=== PATIENT | male | born 1965 | race Caucasian/White ===

== ENCOUNTER 2021-06-26 08:05 | Emergency (ER) | payer OTHER ==
[2021-06-26 08:24] VITALS: BP 125/76; PULSE 68; TEMP 98.6; BMI 33.5
[2021-06-26] MEDS ORDERED: KETOROLAC TROMETHAMINE 30 MG/1 ML VIAL IM ONE (08:26)
[2021-06-26] MEDS ORDERED: KETOROLAC TROMETHAMINE 30 MG/1 ML VIAL ONE (08:50)
== END 2021-06-26 09:51 | disposition home or self-care (01) ==
LOC: FER 08:05
PROC: 3E023GC Introduction of Other Therapeutic Substance into Muscle, Percutaneous Approach (ICD-10-PCS; principal; 2021-06-26)
DX: M54.2 Cervicalgia (principal); M54.6 Pain in thoracic spine
CPT/HCPCS: 72070-TC-FY; 99284-25

== ENCOUNTER 2022-04-14 08:33 | Inpatient (IN) | payer OTHER ==
[2022-04-14 08:46] VITALS: BMI 33.0
[2022-04-14] MEDS ORDERED: SODIUM CHLORIDE 1,000 ML IV STA ×2 (09:17→10:30)
[2022-04-14 09:21] LABS: HEMATOCRIT 43.9 % (35.4-49); HEMOGLOBIN 15.6 G/dL (11.7-16.9); MCHC 35.5 g/dl (32.0-35.9); MEAN PLT VOLUME 10.1 fl (7.5-11.1); PLATELET COUNT 210.4 10^3/uL (134-434); RBC 4.88 10^6/uL (4.00-5.60); RDW 13.7 % (11.9-15.9); WHITE BLOOD COUNT 22.4 10^3/uL (4.0-10.8)
[2022-04-14] MEDS ORDERED: ACETAMINOPHEN 1000 MG/100 ML BAG IVPB ONE (09:25)
[2022-04-14 09:28] LABS: ALBUMIN 3.6 g/dl (3.4-5.0); BILIRUBIN,TOTAL 0.8 mg/dl (0.2-1); CALCIUM 9.1 mg/dl (8.5-10); CREATININE 1.1 mg/dl (0.55-1.3); TOT PROT 6.9 g/dl (6.4-8.2)
[2022-04-14] MEDS ORDERED: ACETAMINOPHEN INJECTION 100 ML IVPB ONE (09:31)
[2022-04-14 10:01] LABS: EPITHELIAL CELLS FEW /hpf; URINE MUCUS 2+
[2022-04-14] MEDS ORDERED: CEFTRIAXONE 1,000 MG in DEXTROSE 5%-WATER - 50 ML IVPB ONE (13:16)
[2022-04-14] MEDS ORDERED: cefTRIAXone SODIUM 1 GM VIAL ONE (13:26)
[2022-04-14 15:16] LABS: INR 1.46 (0.83-1.09); PROTHROMBIN TIME (PATIENT) 16.8 SEC (9.7-13.0)
[2022-04-14] MEDS ORDERED: ACETAMINOPHEN 1000 MG/100 ML BAG IVPB PRN (16:01)
[2022-04-14] MEDS: LACTATED RINGERS SOLUTION 1,000 ML IV SCH (18:03)
[2022-04-15 08:06] LABS: INR 1.38 (0.83-1.09); PROTHROMBIN TIME (PATIENT) 15.9 SEC (9.7-13.0)
[2022-04-15 08:48] LABS: ALBUMIN 3.1 g/dl (3.4-5.0); BILIRUBIN,TOTAL 0.7 mg/dl (0.2-1); CREATININE 0.9 mg/dl (0.55-1.3); MAGNESIUM 2.1 mg/dL (1.8-2.4); PHOSPHOROUS 3.2 mg/dl (2.5-4.9); TOT PROT 6.3 g/dl (6.4-8.2)
[2022-04-15] MEDS: CEFTRIAXONE 1 GM in DEXTROSE 5%-WATER - 50 ML IVPB SCH (09:46)
[2022-04-15] MEDS: PANTOPRAZOLE SODIUM 40 MG VIAL IVPUSH SCH (09:46)
[2022-04-15 13:49] LABS: CALCIUM 8.8 mg/dl (8.5-10)
[2022-04-15 13:50] LABS: HEMATOCRIT 42.3 % (35.4-49); HEMOGLOBIN 14.8 G/dL (11.7-16.9); MEAN CELL VOLUME 91.3 fl (80-96); PLATELET COUNT 177.9 10^3/uL (134-434); RBC 4.63 10^6/uL (4.00-5.60); RDW 14.2 % (11.9-15.9); WHITE BLOOD COUNT 17.1 10^3/uL (4.0-10.8)
[2022-04-15 14:45] LABS: PLATELET ESTIMATE ADEQUATE
[2022-04-15] MEDS: LACTATED RINGERS SOLUTION 1,000 ML IV SCH (17:04)
[2022-04-15] MEDS: TAMSULOSIN HCL 0.4 MG CAP PO SCH (21:22)
[2022-04-16] MEDS: CEFTRIAXONE 1 GM in DEXTROSE 5%-WATER - 50 ML IVPB SCH (09:33)
[2022-04-16] MEDS: PANTOPRAZOLE SODIUM 40 MG VIAL IVPUSH SCH (09:33)
[2022-04-16] MEDS: TAMSULOSIN HCL 0.4 MG CAP PO SCH (21:12)
[2022-04-17 08:01] LABS: ALBUMIN 3.1 g/dl (3.4-5.0); BILIRUBIN,TOTAL 0.6 mg/dl (0.2-1); CALCIUM 9.2 mg/dl (8.5-10); CREATININE 0.9 mg/dl (0.55-1.3); TOT PROT 6.3 g/dl (6.4-8.2)
[2022-04-17 09:16] LABS: BASO % 0.2 % (0-2.0); EOS % 0.6 % (0-4.5); LYMPH % 14.8 % (8-40); MCH 31.5 pg (25.7-33.7); MCHC 34.9 g/dl (32.0-35.9); MEAN CELL VOLUME 90.2 fl (80-96); MEAN PLT VOLUME 9.9 fl (7.5-11.1); MONO % 9.4 % (3.8-10.2); PLATELET COUNT 255 10^3/uL (134-434); RBC 4.77 M/mm3 (4.00-5.60); RDW 13.7 % (11.9-15.9); WHITE BLOOD COUNT 9.7 K/mm3 (4.0-10.0)
[2022-04-17] MEDS: LACTATED RINGERS SOLUTION 1,000 ML IV SCH ×2 (09:49→17:54)
[2022-04-17] MEDS: PANTOPRAZOLE SODIUM 40 MG VIAL IVPUSH SCH (09:51)
[2022-04-17] MEDS: CEFTRIAXONE 1 GM in DEXTROSE 5%-WATER - 50 ML IVPB SCH (09:51)
[2022-04-17] MEDS: TAMSULOSIN HCL 0.4 MG CAP PO SCH (21:07)
[2022-04-18 01:54] VITALS: RESP 18
[2022-04-18] MEDS: CEFTRIAXONE 1 GM in DEXTROSE 5%-WATER - 50 ML IVPB SCH (09:45)
[2022-04-18] MEDS: PANTOPRAZOLE SODIUM 40 MG VIAL IVPUSH SCH (09:45)
[2022-04-18 11:34] VITALS: BP 128/69; PULSE 71; TEMP 98.6
== END 2022-04-18 12:12 | disposition home or self-care (01) | DRG 392 ==
LOC: FER 08:33 → FM/S 13:26
PROVIDERS: ADMIT Internal Medicine
DX: K57.92 Diverticulitis of intestine, part unspecified, without perforation or abscess without bleeding (principal); N40.0 Benign prostatic hyperplasia without lower urinary tract symptoms; E66.9 Obesity, unspecified; Z68.33 Body mass index [BMI] 33.0-33.9, adult
CPT/HCPCS: 36415; 74177-TC; 80048; 80053; 81003; 81015; 83735; 84100; 85025; 85027; 85610; 86850; 86900; 86901; 99285-25; C9803-CS; Q9967; U0003; U0005

== ENCOUNTER 2022-06-06 12:23 | Inpatient (IN) | payer OTHER ==
[~2022-06-06 12:23] MED LIST: PIPERACILLIN/TAZOB 4.5 GM 4.5 GM in DEXTROSE 5%-WATER 100 ML IVPB ONE
[2022-06-06] MEDS ORDERED: ACETAMINOPHEN 1000 MG/100 ML BAG IVPB ONE (15:20)
[2022-06-06] MEDS ORDERED: SODIUM CHLORIDE 0.9% 500 ML INFUS.BAG IV ONE (15:20)
[2022-06-06] MEDS ORDERED: ACETAMINOPHEN INJECTION 100 ML IVPB ONE ×2 (15:41→22:45)
[2022-06-06 16:46] LABS: BASO % 0.4 % (0-2.0); EOS % 0.7 % (0-4.5); HEMATOCRIT 43.4 % (35.4-49); HEMOGLOBIN 14.5 GM/dL (11.7-16.9); LYMPH % 20.6 % (8-40); MCHC 33.4 g/dl (32.0-35.9); MEAN CELL VOLUME 89.6 fl (80-96); MEAN PLT VOLUME 10.6 fl (7.5-11.1); MONO % 9.4 % (3.8-10.2); NEUT % 68.9 % (42.8-82.8); PLATELET COUNT 237 10^3/uL (134-434); RBC 4.84 M/mm3 (4.00-5.60); RDW 14.5 % (11.9-15.9); WHITE BLOOD COUNT 9.7 K/mm3 (4.0-10.0)
[2022-06-06 17:08] LABS: ALBUMIN 3.8 g/dl (3.4-5.0); BLOOD UREA NITROGEN 11.4 mg/dL (7-18); CALCIUM 9.9 mg/dL (8.5-10.1)
[2022-06-06 17:13] LABS: BILIRUBIN,TOTAL 0.4 mg/dL (0.2-1); TOT PROT 7.4 g/dl (6.4-8.2)
[2022-06-06 17:23] LABS: PH,URINE 5.5 (5.0-8.0); URINE APPEARANCE CLEAR; URINE BILIRUBIN NEGATIVE (NEGATIVE); URINE COLOR YELLOW; URINE GLUCOSE (UA) NEGATIVE (NEGATIVE); URINE KETONE TRACE (NEGATIVE); URINE LEUK ESTERASE NEGATIVE (NEGATIVE); URINE NITRITE NEGATIVE (NEGATIVE); URINE PROTEIN NEGATIVE (NEGATIVE); URINE UROBILINOGEN 0.2 mg/dL (0.2-1.0)
[2022-06-06] MEDS ORDERED: PIPERACILLIN/TAZOB 4.5 GM 4.5 GM in DEXTROSE 5%-WATER 100 ML IVPB ONE (18:30)
[2022-06-06] MEDS ORDERED: PIPERACILLIN/TAZOB 4.5 GM 4.5 GM/100 ML BAG IVPB ONE ×2 (18:50→19:53)
[2022-06-06] MEDS: LACTATED RINGERS SOLUTION 1,000 ML IV SCH (20:04)
[2022-06-06] MEDS: ACETAMINOPHEN 1000 MG/100 ML BAG IVPB PRN (22:48)
[2022-06-07 05:52] VITALS: BMI 31.2
[2022-06-07] MEDS: LACTATED RINGERS SOLUTION 1,000 ML IV SCH (07:11)
[2022-06-07 08:25] LABS: BASO % 0.4 % (0-2.0); EOS % 0.9 % (0-4.5); HEMATOCRIT 42.6 % (35.4-49); HEMOGLOBIN 14.1 GM/dL (11.7-16.9); MCH 29.9 pg (25.7-33.7); MCHC 33.2 g/dl (32.0-35.9); MEAN CELL VOLUME 90.2 fl (80-96); MEAN PLT VOLUME 10.9 fl (7.5-11.1); MONO % 10.2 % (3.8-10.2); NEUT % 75.5 % (42.8-82.8); PLATELET COUNT 186 10^3/uL (134-434); RBC 4.72 M/mm3 (4.00-5.60); RDW 14.1 % (11.9-15.9); WHITE BLOOD COUNT 8.3 K/mm3 (4.0-10.0)
[2022-06-07 08:48] LABS: ALBUMIN 3.3 g/dl (3.4-5.0); BLOOD UREA NITROGEN 10.3 mg/dL (7-18); CALCIUM 9.3 mg/dL (8.5-10.1)
[2022-06-07 08:51] LABS: CREATININE 0.9 mg/dL (0.55-1.3); PHOSPHOROUS 3.6 mg/dL (2.5-4.9)
[2022-06-07 08:53] LABS: BILIRUBIN,TOTAL 1.1 mg/dL (0.2-1); TOT PROT 6.5 g/dl (6.4-8.2)
[2022-06-07] MEDS: PIPERACILLIN/TAZOB 3.375 GM 3.375 GM in DEXTROSE 5%-WATER - 50 ML IVPB SCH ×3 (10:31→23:36)
[2022-06-07] MEDS: TAMSULOSIN HCL 0.4 MG CAP PO SCH (10:31)
[2022-06-07 10:41] LABS: INR 1.28 (0.83-1.09); PROTHROMBIN TIME (PATIENT) 14.8 SEC (9.7-13.0)
[2022-06-07 10:44] LABS: ACTIVATED PTT 28.3 SECONDS (25.2-36.5)
[2022-06-07] MEDS ORDERED: FENTANYL CITRATE/PF 50 MCG/ML VIAL ONE (11:26)
[2022-06-07] MEDS ORDERED: FENTANYL CITRATE/PF 50 MCG/ML VIAL IVPUSH ONE (11:45)
[2022-06-07] MEDS: ACETAMINOPHEN 1000 MG/100 ML BAG IVPB PRN ×2 (13:05→19:22)
[2022-06-07] MEDS ORDERED: KETOROLAC TROMETHAMINE 15 MG/ML VIAL IVPUSH ONE ×2 (19:20→23:15)
[2022-06-07] MEDS ORDERED: MELATONIN 5 MG TABLETS PO ONE (22:00)
[2022-06-08] MEDS: LACTATED RINGERS SOLUTION 1,000 ML IV SCH ×3 (00:13→21:36)
[2022-06-08] MEDS: PIPERACILLIN/TAZOB 3.375 GM 3.375 GM in DEXTROSE 5%-WATER - 50 ML IVPB SCH ×2 (04:06→09:01)
[2022-06-08] MEDS ORDERED: KETOROLAC TROMETHAMINE 15 MG/ML VIAL IVPUSH ONE (05:07)
[2022-06-08] MEDS: TAMSULOSIN HCL 0.4 MG CAP PO SCH (09:00)
[2022-06-08] MEDS ORDERED: ACETAMINOPHEN 1000 MG/100 ML BAG IVPB PRN (12:28)
[2022-06-08] MEDS: KETOROLAC TROMETHAMINE 30 MG/1 ML VIAL IVPUSH PRN ×2 (12:37→23:23)
[2022-06-08] MEDS: PIPERACILLIN/TAZOB 4.5 GM 4.5 GM in DEXTROSE 5%-WATER 100 ML IVPB SCH ×2 (14:59→17:12)
[2022-06-08] MEDS ORDERED: PIPERACILLIN/TAZOB 3.375 GM 3.375 GM in DEXTROSE 5%-WATER - 50 ML IVPB ONE (15:00)
[2022-06-08] MEDS ORDERED: PIPERACILLIN/TAZOB 4.5 GM 4.5 GM in DEXTROSE 5%-WATER 100 ML IVPB SCH (18:00)
[2022-06-09] MEDS: PIPERACILLIN/TAZOB 4.5 GM 4.5 GM in DEXTROSE 5%-WATER 100 ML IVPB SCH ×3 (01:30→16:59)
[2022-06-09] MEDS: LACTATED RINGERS SOLUTION 1,000 ML IV SCH ×3 (07:02→19:53)
[2022-06-09 08:35] LABS: BASO % 0.4 % (0-2.0); EOS % 0.8 % (0-4.5); HEMATOCRIT 40.4 % (35.4-49); HEMOGLOBIN 13.5 GM/dL (11.7-16.9); MCH 29.8 pg (25.7-33.7); MCHC 33.4 g/dl (32.0-35.9); MEAN CELL VOLUME 89.3 fl (80-96); MEAN PLT VOLUME 10.1 fl (7.5-11.1); MONO % 10.5 % (3.8-10.2); NEUT % 77.3 % (42.8-82.8); PLATELET COUNT 238 10^3/uL (134-434); RBC 4.52 M/mm3 (4.00-5.60); RDW 13.9 % (11.9-15.9); WHITE BLOOD COUNT 9.2 K/mm3 (4.0-10.0)
[2022-06-09 09:01] LABS: BLOOD UREA NITROGEN 11.6 mg/dL (7-18); CALCIUM 9.3 mg/dL (8.5-10.1)
[2022-06-09 09:04] LABS: CREATININE 0.8 mg/dL (0.55-1.3)
[2022-06-09 09:06] LABS: TOT PROT 6.2 g/dl (6.4-8.2)
[2022-06-09 12:12] LABS: BILIRUBIN,TOTAL 0.5 mg/dL (0.2-1)
[2022-06-09] MEDS: TAMSULOSIN HCL 0.4 MG CAP PO SCH ×2 (12:15→14:39)
[2022-06-10] MEDS: PIPERACILLIN/TAZOB 4.5 GM 4.5 GM in DEXTROSE 5%-WATER 100 ML IVPB SCH ×3 (01:45→18:04)
[2022-06-10] MEDS: LACTATED RINGERS SOLUTION 1,000 ML IV SCH ×3 (01:46→20:43)
[2022-06-10] MEDS: TAMSULOSIN HCL 0.4 MG CAP PO SCH (08:50)
[2022-06-10 11:52] LABS: HEMATOCRIT 40.2 % (35.4-49); HEMOGLOBIN 13.3 GM/dL (11.7-16.9); MCH 29.4 pg (25.7-33.7); MCHC 33.2 g/dl (32.0-35.9); MEAN CELL VOLUME 88.7 fl (80-96); MEAN PLT VOLUME 9.7 fl (7.5-11.1); PLATELET COUNT 257 10^3/uL (134-434); RBC 4.53 M/mm3 (4.00-5.60); WHITE BLOOD COUNT 8.1 K/mm3 (4.0-10.0)
[2022-06-10 12:17] LABS: BLOOD UREA NITROGEN 4.2 mg/dL (7-18); CALCIUM 9.4 mg/dL (8.5-10.1)
[2022-06-10 12:18] LABS: MAGNESIUM 1.9 mg/dL (1.8-2.4)
[2022-06-10 12:21] LABS: CREATININE 0.9 mg/dL (0.55-1.3); PHOSPHOROUS 2.8 mg/dL (2.5-4.9)
[2022-06-10 12:22] LABS: BILIRUBIN,TOTAL 0.3 mg/dL (0.2-1)
[2022-06-10 12:23] LABS: TOT PROT 6.4 g/dl (6.4-8.2)
[2022-06-11] MEDS: PIPERACILLIN/TAZOB 4.5 GM 4.5 GM in DEXTROSE 5%-WATER 100 ML IVPB SCH ×3 (02:01→18:06)
[2022-06-11] MEDS ORDERED: LACTATED RINGERS SOLUTION 1,000 ML/1,000 ML INFUS.BAG IV SCH (09:30)
[2022-06-11 10:09] LABS: HEMATOCRIT 29.7 % (35.4-49); HEMOGLOBIN 9.9 GM/dL (11.7-16.9); MCH 29.9 pg (25.7-33.7); MCHC 33.3 g/dl (32.0-35.9); MEAN CELL VOLUME 89.5 fl (80-96); PLATELET COUNT 203 10^3/uL (134-434); RBC 3.32 M/mm3 (4.00-5.60); RDW 13.8 % (11.9-15.9); WHITE BLOOD COUNT 5.1 K/mm3 (4.0-10.0)
[2022-06-11 11:14] LABS: CALCIUM 8.6 mg/dL (8.5-10.1)
[2022-06-11 11:15] LABS: BLOOD UREA NITROGEN 3.4 mg/dL (7-18); MAGNESIUM 1.5 mg/dL (1.8-2.4)
[2022-06-11 11:17] LABS: CREATININE 0.7 mg/dL (0.55-1.3)
[2022-06-11 11:18] LABS: BILIRUBIN,TOTAL 0.2 mg/dL (0.2-1); PHOSPHOROUS 3.2 mg/dL (2.5-4.9)
[2022-06-11 11:20] LABS: ALBUMIN 2.3 g/dl (3.4-5.0)
[2022-06-11] MEDS ORDERED: MAGNESIUM SULF 50% (8.12 MEQ/2 ML-1 GM VIAL) IVPB ONE ×2 (12:15→16:00)
[2022-06-11] MEDS: TAMSULOSIN HCL 0.4 MG CAP PO SCH (15:11)
[2022-06-12] MEDS: PIPERACILLIN/TAZOB 4.5 GM 4.5 GM in DEXTROSE 5%-WATER 100 ML IVPB SCH ×3 (01:41→17:11)
[2022-06-12] MEDS: LACTATED RINGERS SOLUTION 1,000 ML IV SCH ×3 (01:41→14:19)
[2022-06-12 10:16] LABS: HEMATOCRIT 42.2 % (35.4-49); HEMOGLOBIN 14.2 GM/dL (11.7-16.9); MCH 29.9 pg (25.7-33.7); MCHC 33.7 g/dl (32.0-35.9); MEAN CELL VOLUME 88.6 fl (80-96); MEAN PLT VOLUME 9.6 fl (7.5-11.1); PLATELET COUNT 323 10^3/uL (134-434); RBC 4.76 M/mm3 (4.00-5.60); RDW 13.8 % (11.9-15.9); WHITE BLOOD COUNT 6.9 K/mm3 (4.0-10.0)
[2022-06-12 10:37] LABS: BLOOD UREA NITROGEN 4.3 mg/dL (7-18); CALCIUM 9.7 mg/dL (8.5-10.1); MAGNESIUM 2.2 mg/dL (1.8-2.4)
[2022-06-12 10:39] LABS: BILIRUBIN,TOTAL 0.4 mg/dL (0.2-1)
[2022-06-12 10:41] LABS: PHOSPHOROUS 3.9 mg/dL (2.5-4.9)
[2022-06-12 10:51] LABS: ALBUMIN 3.2 g/dl (3.4-5.0); TOT PROT 7.1 g/dl (6.4-8.2)
[2022-06-12] MEDS: TAMSULOSIN HCL 0.4 MG CAP PO SCH (10:55)
[2022-06-12] MEDS: PIPERACILLIN/TAZOB 3.375 GM 3.375 GM in DEXTROSE 5%-WATER - 50 ML IVPB SCH (10:57)
[2022-06-13] MEDS: PIPERACILLIN/TAZOB 4.5 GM 4.5 GM in DEXTROSE 5%-WATER 100 ML IVPB SCH ×2 (01:46→10:01)
[2022-06-13] MEDS: LACTATED RINGERS SOLUTION 1,000 ML IV SCH (01:46)
[2022-06-13 08:20] VITALS: RESP 18
[2022-06-13 09:24] LABS: HEMATOCRIT 43.4 % (35.4-49); HEMOGLOBIN 14.5 GM/dL (11.7-16.9); MCH 29.7 pg (25.7-33.7); MCHC 33.4 g/dl (32.0-35.9); MEAN CELL VOLUME 88.8 fl (80-96); MEAN PLT VOLUME 9.6 fl (7.5-11.1); PLATELET COUNT 333 10^3/uL (134-434); RBC 4.88 M/mm3 (4.00-5.60); RDW 14.1 % (11.9-15.9); WHITE BLOOD COUNT 6.7 K/mm3 (4.0-10.0)
[2022-06-13] MEDS: TAMSULOSIN HCL 0.4 MG CAP PO SCH (09:57)
[2022-06-13 09:58] LABS: CALCIUM 9.9 mg/dL (8.5-10.1)
[2022-06-13 09:59] LABS: ALBUMIN 3.3 g/dl (3.4-5.0); BLOOD UREA NITROGEN 3.5 mg/dL (7-18)
[2022-06-13 10:03] LABS: BILIRUBIN,TOTAL 0.4 mg/dL (0.2-1); TOT PROT 7.2 g/dl (6.4-8.2)
[2022-06-13] MEDS: ERTAPENEM SODIUM 1 GM in SODIUM CHLORIDE 50 ML IVPB SCH (17:59)
[2022-06-14] MEDS ORDERED: PANTOPRAZOLE 40 MG TABLET PO SCH (10:00)
[2022-06-14] MEDS: ERTAPENEM SODIUM 1 GM in SODIUM CHLORIDE 50 ML IVPB SCH (10:14)
[2022-06-14] MEDS: TAMSULOSIN HCL 0.4 MG CAP PO SCH (10:15)
[2022-06-14 10:51] LABS: BASO % 0.6 % (0-2.0); EOS % 2.8 % (0-4.5); HEMATOCRIT 42.5 % (35.4-49); HEMOGLOBIN 14.3 GM/dL (11.7-16.9); MCH 29.7 pg (25.7-33.7); MCHC 33.5 g/dl (32.0-35.9); MEAN CELL VOLUME 88.7 fl (80-96); MEAN PLT VOLUME 9.3 fl (7.5-11.1); MONO % 6.9 % (3.8-10.2); NEUT % 63.7 % (42.8-82.8); PLATELET COUNT 365 10^3/uL (134-434); RBC 4.79 M/mm3 (4.00-5.60); RDW 13.9 % (11.9-15.9); WHITE BLOOD COUNT 6.1 K/mm3 (4.0-10.0)
[2022-06-14 11:35] LABS: ALBUMIN 3.4 g/dl (3.4-5.0); CALCIUM 9.9 mg/dL (8.5-10.1)
[2022-06-14 11:36] LABS: MAGNESIUM 2.4 mg/dL (1.8-2.4)
[2022-06-14 11:38] LABS: TOT PROT 7.4 g/dl (6.4-8.2)
[2022-06-14 11:39] LABS: PHOSPHOROUS 3.3 mg/dL (2.5-4.9)
[2022-06-14 11:42] LABS: BILIRUBIN,TOTAL 0.4 mg/dL (0.2-1)
[2022-06-14 12:07] VITALS: BP 125/80; PULSE 98; TEMP 98.6
== END 2022-06-14 16:21 | disposition home health service (06) | DRG 392 ==
LOC: JER 12:23 → JERBED 18:43 → J7W 06-07 00:25 → J8W 06-11 00:24
PROVIDERS: ADMIT Internal Medicine; ATTEND Internal Medicine
PROC: 0W9G30Z Drainage of Peritoneal Cavity with Drainage Device, Percutaneous Approach (ICD-10-PCS; 2022-06-07)
PROC: 02HV33Z Insertion of Infusion Device into Superior Vena Cava, Percutaneous Approach (ICD-10-PCS; principal; 2022-06-14)
DX: K57.20 Diverticulitis of large intestine with perforation and abscess without bleeding (principal); N40.0 Benign prostatic hyperplasia without lower urinary tract symptoms; R74.8 Abnormal levels of other serum enzymes; E66.9 Obesity, unspecified; Z68.31 Body mass index [BMI] 31.0-31.9, adult; K80.20 Calculus of gallbladder without cholecystitis without obstruction
CPT/HCPCS: 0241U-QW; 36415; 36569; 49406; 72193-TC; 74177-TC; 80053; 81003; 83605; 83735; 84100; 85025; 85027; 85610; 85730; 86140; 87070; 87075; 87086; 87102; 87116; 87186; 87205; 87206; 87210; 93005; 93010; 99285-25; C1729; C1769; C9803-CS; Q9967; U0003; U0005

== ENCOUNTER 2022-08-30 08:00 | Inpatient (IN) | payer OTHER ==
[2022-09-18 14:35] VITALS: BMI 28.4
[2022-09-20] MEDS ORDERED: ERTAPENEM SODIUM 1 GM in SODIUM CHLORIDE 50 ML IVPB ONE (07:00)
[2022-09-20] MEDS ORDERED: GABAPENTIN 300 MG CAPSULE PO ONE (07:00)
[2022-09-20] MEDS ORDERED: ACETAMINOPHEN 1000 MG/100 ML BAG IVPB ONE (07:00)
[2022-09-20] MEDS ORDERED: ALVIMOPAN 12 MG CAP PO ONE (07:30)
[2022-09-20] MEDS ORDERED: ERTAPENEM SODIUM 1 GM VIAL ONE (09:05)
[2022-09-20] MEDS ORDERED: PROPOFOL 20 ML ONE ×3 (10:28→17:23)
[2022-09-20] MEDS ORDERED: ROCURONIUM BROMIDE 50 MG/5 ML SYRINGE ONE ×2 (10:28→13:35)
[2022-09-20] MEDS ORDERED: LIDOCAINE HCL/PF 2% SDV 5ML VIAL ONE (10:28)
[2022-09-20] MEDS ORDERED: MIDAZOLAM HCL 2 MG/2 ML SINGLE DOSE VIAL ONE (10:29)
[2022-09-20] MEDS ORDERED: BUPIVACAINE HCL/PF 0.5% (5MG/ML) 10 ML VIAL ONE (11:31)
[2022-09-20] MEDS ORDERED: ERTAPENEM SODIUM 1 GM VIAL IVPB ONE (11:32)
[2022-09-20] MEDS ORDERED: DEXAMETHASONE SOD PHOSPHATE 4 MG/1 ML VIAL ONE (11:51)
[2022-09-20] MEDS ORDERED: KETOROLAC TROMETHAMINE 30 MG/1 ML VIAL ONE (11:51)
[2022-09-20] MEDS ORDERED: ONDANSETRON 4 MG/2 ML VIAL ONE (11:51)
[2022-09-20] MEDS ORDERED: BUPIVACAINE HCL/PF 0.5% (5MG/ML) 10 ML VIAL IJ ONE ×2 (12:09)
[2022-09-20] MEDS ORDERED: ACETAMINOPHEN INJECTION 100 ML IVPB ONE (13:49)
[2022-09-20] MEDS ORDERED: KETAMINE HCL 500 MG/10 ML VIAL ONE (13:57)
[2022-09-20] MEDS ORDERED: HYDROmorphone HCl 2 MG/ML VIAL ONE (14:34)
[2022-09-20] MEDS ORDERED: INDOCYANINE GREEN 25 MG/10 ML VIAL IVPUSH ONE (15:05)
[2022-09-20] MEDS ORDERED: SEVOFLURANE 250 ML BTL ONE (16:25)
[2022-09-20] MEDS ORDERED: NEOSTIGMINE METHYLSULFATE 0.5 MG/1 ML - 10 ML MDV ONE (17:38)
[2022-09-20] MEDS ORDERED: GLYCOPYRROLATE 0.2 MG/1 ML VIAL ONE ×2 (17:38)
[2022-09-20] MEDS ORDERED: oxyCODONE HCL 5 MG TABLET PO PRN ×6 (17:49→18:04)
[2022-09-20] MEDS ORDERED: morphine CARPU-JECT 4 MG/1 ML DISP.SYRIN IVPUSH PRN (17:54)
[2022-09-20] MEDS ORDERED: SODIUM CHLORIDE 1,000 ML IV SCH (18:00)
[2022-09-20] MEDS ORDERED: morphine SULFATE 4 MG/ML VIAL IVPUSH PRN (18:02)
[2022-09-20] MEDS: SODIUM CHLORIDE 1,000 ML IV SCH (22:02)
[2022-09-20] MEDS: SCOPOLAMINE HYDROBROMIDE 1 PATCH PATCH.TD72 TD SCH (22:02)
[2022-09-20] MEDS: ACETAMINOPHEN 1000 MG/100 ML BAG IVPB SCH ×2 (22:02→23:38)
[2022-09-20] MEDS: GABAPENTIN 300 MG CAPSULE PO SCH (22:20)
[2022-09-20] MEDS: ALVIMOPAN 12 MG CAP PO SCH (22:23)
[2022-09-21] MEDS: ACETAMINOPHEN 1000 MG/100 ML BAG IVPB SCH ×3 (05:17→20:20)
[2022-09-21] MEDS: GABAPENTIN 300 MG CAPSULE PO SCH ×3 (06:54→22:45)
[2022-09-21] MEDS: ENOXAPARIN NA (PORCINE) 40 MG/0.4 ML DISP.SYRIN SQ SCH (09:41)
[2022-09-21] MEDS: TAMSULOSIN HCL 0.4 MG CAP PO SCH (09:41)
[2022-09-21] MEDS: ALVIMOPAN 12 MG CAP PO SCH ×2 (09:42→22:45)
[2022-09-21 10:17] LABS: BASO % 0.1 % (0-2.0); HEMATOCRIT 40.4 % (35.4-49); HEMOGLOBIN 13.7 GM/dL (11.7-16.9); MCH 29.6 pg (25.7-33.7); MEAN CELL VOLUME 87.1 fl (80-96); MEAN PLT VOLUME 10.9 fl (7.5-11.1); MONO % 11.1 % (3.8-10.2); NEUT % 76.8 % (42.8-82.8); PLATELET COUNT 195 10^3/uL (134-434); RBC 4.64 M/mm3 (4.00-5.60); RDW 15.1 % (11.9-15.9); WHITE BLOOD COUNT 12.3 K/mm3 (4.0-10.0)
[2022-09-21 10:47] LABS: BLOOD UREA NITROGEN 14.7 mg/dL (7-18)
[2022-09-21] MEDS: SODIUM CHLORIDE 1,000 ML IV SCH (18:51)
[2022-09-22] MEDS: ACETAMINOPHEN 1000 MG/100 ML BAG IVPB SCH ×2 (04:41→11:44)
[2022-09-22] MEDS: SODIUM CHLORIDE 1,000 ML IV SCH (04:42)
[2022-09-22] MEDS ORDERED: oxyCODONE HCL 5 MG TABLET PO PRN (07:20)
[2022-09-22] MEDS: GABAPENTIN 300 MG CAPSULE PO SCH ×3 (07:30→22:18)
[2022-09-22 07:55] VITALS: RESP 20
[2022-09-22] MEDS: ALVIMOPAN 12 MG CAP PO SCH ×2 (09:08→22:18)
[2022-09-22] MEDS: ENOXAPARIN NA (PORCINE) 40 MG/0.4 ML DISP.SYRIN SQ SCH (09:08)
[2022-09-22] MEDS: TAMSULOSIN HCL 0.4 MG CAP PO SCH (09:08)
[2022-09-22 09:47] LABS: ALBUMIN 3.2 g/dl (3.4-5.0); BLOOD UREA NITROGEN 8.1 mg/dL (7-18); CALCIUM 8.5 mg/dL (8.5-10.1); MAGNESIUM 2.1 mg/dL (1.8-2.4)
[2022-09-22 09:49] LABS: BASO % 0.2 % (0-2.0); EOS % 0.9 % (0-4.5); HEMATOCRIT 38.6 % (35.4-49); HEMOGLOBIN 13.1 GM/dL (11.7-16.9); LYMPH % 9.7 % (8-40); MCH 29.7 pg (25.7-33.7); MCHC 33.9 g/dl (32.0-35.9); MEAN CELL VOLUME 87.6 fl (80-96); MEAN PLT VOLUME 11.4 fl (7.5-11.1); MONO % 10.1 % (3.8-10.2); NEUT % 79.1 % (42.8-82.8); PLATELET COUNT 147 10^3/uL (134-434); RBC 4.41 M/mm3 (4.00-5.60); WHITE BLOOD COUNT 10.9 K/mm3 (4.0-10.0)
[2022-09-22 09:50] LABS: CREATININE 0.7 mg/dL (0.55-1.3)
[2022-09-22] MEDS: ACETAMINOPHEN 500 MG TABLET (FP) PO SCH (22:18)
[2022-09-23] MEDS ORDERED: MELATONIN 5 MG TABLETS PO PRN (00:55)
[2022-09-23] MEDS: ACETAMINOPHEN 500 MG TABLET (FP) PO SCH (06:37)
[2022-09-23] MEDS: GABAPENTIN 300 MG CAPSULE PO SCH (06:37)
[2022-09-23] MEDS: SCOPOLAMINE HYDROBROMIDE 1 PATCH PATCH.TD72 TD SCH (06:40)
[2022-09-23 09:34] LABS: BASO % 0.3 % (0-2.0); EOS % 2.4 % (0-4.5); HEMATOCRIT 37.1 % (35.4-49); HEMOGLOBIN 12.9 GM/dL (11.7-16.9); LYMPH % 13.3 % (8-40); MCHC 34.7 g/dl (32.0-35.9); MEAN CELL VOLUME 86.4 fl (80-96); MEAN PLT VOLUME 10.9 fl (7.5-11.1); MONO % 9.2 % (3.8-10.2); NEUT % 74.8 % (42.8-82.8); PLATELET COUNT 164 10^3/uL (134-434); RBC 4.29 M/mm3 (4.00-5.60); RDW 15.1 % (11.9-15.9); WHITE BLOOD COUNT 7.8 K/mm3 (4.0-10.0)
[2022-09-23 09:50] LABS: ALBUMIN 3.1 g/dl (3.4-5.0); BLOOD UREA NITROGEN 8.4 mg/dL (7-18); CALCIUM 8.9 mg/dL (8.5-10.1)
[2022-09-23 09:53] LABS: CREATININE 0.7 mg/dL (0.55-1.3)
[2022-09-23 09:55] LABS: BILIRUBIN,TOTAL 0.4 mg/dL (0.2-1); TOT PROT 6.1 g/dl (6.4-8.2)
[2022-09-23] MEDS: TAMSULOSIN HCL 0.4 MG CAP PO SCH (10:21)
[2022-09-23] MEDS: ENOXAPARIN NA (PORCINE) 40 MG/0.4 ML DISP.SYRIN SQ SCH (10:21)
[2022-09-23 12:34] VITALS: BP 134/75; PULSE 66; TEMP 97.9
== END 2022-09-23 12:52 | disposition home or self-care (01) | DRG 331 ==
LOC: J2C 09-20 05:29 → J8W 09-20 21:51
PROVIDERS: ADMIT Surgery; ATTEND Nurse Practitioner Acute Care
PROC: 8E0W4CZ Robotic Assisted Procedure of Trunk Region, Percutaneous Endoscopic Approach (ICD-10-PCS; 2022-09-20)
PROC: 0DTN4ZZ Resection of Sigmoid Colon, Percutaneous Endoscopic Approach (ICD-10-PCS; principal; 2022-09-20 10:45)
DX: K57.20 Diverticulitis of large intestine with perforation and abscess without bleeding (principal); N40.0 Benign prostatic hyperplasia without lower urinary tract symptoms; M54.50 Low back pain, unspecified
CPT/HCPCS: 36415; 80048; 80053; 83735; 85025; 86140; 86850; 86900; 86901; 88305-TC; 88307-TC; 94760